=== PATIENT | male | born 1990 | race Two or more races ===

== ENCOUNTER → 2016-08-21 | Outpatient (CLI) | payer OTHER ==
[2016-08-21 15:23] LABS: INR 1.9 (0.9-1.1); PROTHROMBIN TIME 20.6 SEC (9.4-11.6)
[2016-08-21 15:40] LABS: ALANINE AMINOTRANSFERASE 58 U/L (12-78); ALBUMIN 4.9 g/dL (3.4-5.0); ANION GAP 9 mmol/L (8-16); ASPARTATE AMINOTRANSFERASE 24 U/L (15-37); BILIRUBIN,TOTAL 0.7 mg/dL (0.1-1.0); CALCIUM, TOTAL 9.7 mg/dL (8.8-10.5); CARBON DIOXIDE 31 mmol/L (22-29); CHLORIDE 103 mmol/L (98-107); CHOL/HDL RATIO 5.1 (4.2-7.3); CREATININE 1.07 mg/dL (0.60-1.30); GLOMERULAR FILTR. RATE CALC > 60 mL/min (>60); POTASSIUM 4.1 mmol/L (3.5-5.1); SODIUM SERUM 143 mmol/L (136-145); TOTAL PROTEIN, SERUM 7.9 g/dL (6.4-8.2); UREA NITROGEN, BLOOD 18 mg/dL (7-18)
== END | disposition home or self-care (01) ==
LOC: LABMN 14:45
PROVIDERS: ATTEND Family Medicine
DX: I63.9 Cerebral infarction, unspecified (principal)

== ENCOUNTER → 2016-10-20 | Outpatient (CLI) | payer OTHER ==
[2016-10-20 16:59] LABS: INR 1.5 (0.9-1.1); PROTHROMBIN TIME 15.4 SEC (9.4-11.6)
== END | disposition home or self-care (01) ==
LOC: LABPV 15:56
PROVIDERS: ATTEND Internal Medicine Cardiovascular Disease
DX: Z51.81 Encounter for therapeutic drug level monitoring (principal); Z86.73 Personal history of transient ischemic attack (TIA), and cerebral infarction without residual deficits

== ENCOUNTER → 2016-10-20 | Outpatient (CLI) | payer OTHER ==
[2016-10-21 03:06] LABS: THYROID PEROXIDASE (TPO) AB 10 IU/mL (0-34)
[2016-10-21 07:13] LABS: IGG (IMMUNOFIXATION) 778 mg/dL (700-1600)
[2016-10-22 09:12] LABS: COMPLEMENT C3 45 mg/dL (82-167); COMPLEMENT C4 4 mg/dL (14-44)
== END | disposition home or self-care (01) ==
LOC: LABPV 16:00
PROVIDERS: ATTEND Internal Medicine Rheumatology
DX: D68.61 Antiphospholipid syndrome (principal)
CPT/HCPCS: 81241; 82306; 82784; 83516; 86160; 86162; 86334; 86376